=== PATIENT | female | born 1990 | race Caucasian/White ===

== ENCOUNTER 2017-01-19 17:50 | Inpatient (IN) | payer OTHER ==
[2017-01-19] MEDS ORDERED: SODIUM CHLORIDE 0.9% 2,000 ML IV ONE (18:32)
[2017-01-19] MEDS ORDERED: ACETAMINOPHEN TAB 500 MG TAB PO STA (18:33)
--- NOTE | 2017-01-19 18:39 | ED ---
Nausea/Vomiting/Diarrhea HPI - General Chief complaint: Nausea/Vomiting/Diarrhea Stated complaint: sick , pain all over Source: patient, RN notes reviewed Mode of arrival: ambulatory Limitations: no limitations - History of Present Illness Initial comments: This is a pleasant 26-year-old female states she's felt ill since Sunday. Patient states she started with vomiting and now has a bit of diarrhea. Patient states that she has had abdominal discomfort as well as back pain bilaterally. Patient denies cough or shortness of breath. She denies sore throat but states she is having some burning in her throat from the vomiting. She is also complaining of a headache and muscle aching generally throughout her body. She states the headache starts on both sides and radiates into the back of her neck. She denies any neck stiffness. No earache. No significant dizziness or lightheadedness. No vaginal discharge. No dysuria. Patient did not receive an influenza shot. Patient does not believe she is . Patient denies any skin rashes or lesions. No chest pain. No changes in vision or hearing. No paresthesias. - Related Data Home Medications Medication Instructions Recorded Confirmed Acetaminophen Tab [Tylenol Tab] 1,000 mg PO Q6HR PRN 01/19/17 01/19/17 Ibuprofen [Motrin] 800 mg PO Q6HR PRN 01/19/17 01/19/17 Allergies Allergy/AdvReac Type Severity Reaction Status Date / Time No Known Allergies Allergy Verified 01/19/17 18:50 Review of Systems ROS Statement: Those systems with pertinent positive or pertinent negative responses have been documented in the HPI. ROS Other: All systems not noted in ROS Statement are negative. Past Medical History Past Medical History: No Reported History History of Any Multi-Drug Resistant Organisms: None Reported Past Surgical History: No Surgical Hx Reported Additional Past Surgical History / Comment(s): urethral dilation at age 4, wisdom teeth 2013, no additional surgeries reported Past Anesthesia/Blood Transfusion Reactions: No Reported Reaction Past Psychological History: No Psychological Hx Reported Smoking Status: Never smoker Past Alcohol Use History: Occasional Past Drug Use History: None Reported - Past Family History Mother Family Medical History: No Reported History Additional Family Medical History / Comment(s): MS General Exam - General Exam Comments Initial Comments: This is a well-developed, well-nourished 26-year-old female who appears to be in mild distress Limitations: no limitations General appearance: alert, in distress Head exam: Present: atraumatic, normocephalic, normal inspection Eye exam: Present: normal appearance, PERRL, EOMI. Absent: scleral icterus, conjunctival injection, periorbital swelling ENT exam: Present: normal exam, normal oropharynx, mucous membranes dry, mucous membranes moist, TM's normal bilaterally, normal external ear exam Neck exam: Present: normal inspection, full ROM, other (Negative Brudzinski's and Kernig's). Absent: tenderness, meningismus, lymphadenopathy Respiratory exam: Present: normal lung sounds bilaterally. Absent: respiratory distress, wheezes, rales, rhonchi, stridor, decreased breath sounds Cardiovascular Exam: Present: normal rhythm, tachycardia, normal heart sounds, other (Capillary refill less than 2 seconds, peripheral pulses 2+ out of 4.). Absent: systolic murmur, diastolic murmur, rubs, gallop, clicks GI/Abdominal exam: Present: soft, normal bowel sounds. Absent: distended, tenderness, guarding, rebound, rigid Extremities exam: Present: normal inspection, full ROM, normal capillary refill. Absent: tenderness, pedal edema, joint swelling, calf tenderness Back exam: Present: normal inspection, CVA tenderness (R), CVA tenderness (L), other (Mild bilateral CVA tenderness). Absent: rash noted Neurological exam: Present: alert, oriented X3, CN II-XII intact Psychiatric exam: Present: normal affect, normal mood Skin exam: Present: warm, dry, intact, normal color. Absent: rash, cyanosis, diaphoretic, erythema, urticaria, vesicles, petechiae, pallor, mottled, abrasion Course Vital Signs 01/19/17 17:52 Temperature 101.8 F H Pulse Rate 138 H Respiratory 18 Rate Blood Pressure 120/62 O2 Sat by Pulse 100 Oximetry - Reevaluation(s) Reevaluation #1: 01/19/17 20:16 Patient reevaluated and is resting comfortably in bed. Patient states she feels improved. Heart rate has diminished to 96 bpm. Capillary refill less than 2 seconds. Peripheral perfusion is adequate. Patient is in no respiratory distress. Abdomen is soft to palpation, no significant tenderness Medical Decision Making - Medical Decision Making Patient be admitted for urinary tract infection with secondary sepsis. Patient given parenteral antibiotics in the ER in the form of Rocephin 1000 mg IV piggyback. Patient be made a hospice, Dr. Deal. Case discussed with the ER attending physician. Discussed treatment plan and prognosis with the patient. - Lab Data Result diagrams: 01/19/17 19:08 01/19/17 19:08 Lab Results 01/19/17 01/19/17 01/19/17 Range/Units 19:08 19:08 19:08 WBC 18.0 H (3.8-10.6) k/uL RBC 4.08 (3.80-5.40) m/uL Hgb 12.4 (11.4-16.0) gm/dL Hct 38.7 (34.0-46.0) % MCV 95.0 (80.0-100.0) fL MCH 30.4 (25.0-35.0) pg MCHC 32.0 (31.0-37.0) g/dL RDW 13.3 (11.5-15.5) % Plt Count 212 (150-450) k/uL Neutrophils % 90 % Lymphocytes % 3 % Monocytes % 4 % Eosinophils % 0 % Basophils % 0 % Neutrophils # 16.2 H (1.3-7.7) k/uL Lymphocytes # 0.5 L (1.0-4.8) k/uL Monocytes # 0.8 (0-1.0) k/uL Eosinophils # 0.0 (0-0.7) k/uL Basophils # 0.1 (0-0.2) k/uL Sodium (137-145) mmol/L Potassium (3.5-5.1) mmol/L Chloride (98-107) mmol/L Carbon Dioxide (22-30) mmol/L Anion Gap mmol/L BUN (7-17) mg/dL Creatinine (0.52-1.04) mg/dL Est GFR (MDRD) Af Amer (>60 ml/min/1.73 sqM) Est GFR (MDRD) Non-Af (>60 ml/min/1.73 sqM) Glucose (74-99) mg/dL Plasma Lactic Acid Robert (0.7-2.0) mmol/L Calcium (8.4-10.2) mg/dL Total Bilirubin (0.2-1.3) mg/dL AST (14-36) U/L ALT (9-52) U/L Alkaline Phosphatase (38-126) U/L Total Protein (6.3-8.2) g/dL Albumin (3.5-5.0) g/dL Lipase (23-300) U/L Heterophile Antibody (Negative) Influenza Type A RNA Not Detected (Not Detectd) Influenza Type B (PCR) Not Detected (Not Detectd) Group A Strep Rapid Negative (Negative) 01/19/17 01/19/17 01/19/17 Range/Units 19:08 19:08 19:08 WBC (3.8-10.6) k/uL RBC (3.80-5.40) m/uL Hgb (11.4-16.0) gm/dL Hct (34.0-46.0) % MCV (80.0-100.0) fL MCH (25.0-35.0) pg MCHC (31.0-37.0) g/dL RDW (11.5-15.5) % Plt Count (150-450) k/uL Neutrophils % % Lymphocytes % % Monocytes % % Eosinophils % % Basophils % % Neutrophils # (1.3-7.7) k/uL Lymphocytes # (1.0-4.8) k/uL Monocytes # (0-1.0) k/uL Eosinophils # (0-0.7) k/uL Basophils # (0-0.2) k/uL Sodium 135 L (137-145) mmol/L Potassium 3.7 (3.5-5.1) mmol/L Chloride 105 (98-107) mmol/L Carbon Dioxide 18 L (22-30) mmol/L Anion Gap 12 mmol/L BUN 11 (7-17) mg/dL Creatinine 0.80 (0.52-1.04) mg/dL Est GFR (MDRD) Af Amer >60 (>60 ml/min/1.73 sqM) Est GFR (MDRD) Non-Af >60 (>60 ml/min/1.73 sqM) Glucose 107 H (74-99) mg/dL Plasma Lactic Acid Robert 1.7 (0.7-2.0) mmol/L Calcium 8.5 (8.4-10.2) mg/dL Total Bilirubin 1.0 (0.2-1.3) mg/dL AST 25 (14-36) U/L ALT 25 (9-52) U/L Alkaline Phosphatase 118 (38-126) U/L Total Protein 6.4 (6.3-8.2) g/dL Albumin 3.3 L (3.5-5.0) g/dL Lipase 31 (23-300) U/L Heterophile Antibody Negative (Negative) Influenza Type A RNA (Not Detectd) Influenza Type B (PCR) (Not Detectd) Group A Strep Rapid (Negative) Disposition Clinical Impression: Sepsis due to urinary tract infection, Urinary tract infection, SIRS (systemic inflammatory response syndrome), Fever Disposition: ADMITTED IP TO THIS HOSP Referrals: Bernadette Tucker MD [Primary Care Provider] - 1-2 days
[2017-01-19 19:22] LABS: Basophils # (A) 0.1 k/uL (0-0.2); Basophils % (A) 0 %; CH 31.8; CHCM 33.7; Eosinophils % (A) 0 %; HCT 38.7 % (34.0-46.0); HDW 2.53; HGB 12.4 gm/dL (11.4-16.0); Luc # (Auto) 0.43; Luc % (Auto) 2; Lymphocytes # (A) 0.5 k/uL (1.0-4.8); Lymphocytes % (A) 3 %; MCH 30.4 pg (25.0-35.0); Mean Platelet Volume 8.3; Monocytes # (A) 0.8 k/uL (0-1.0); Monocytes % (A) 4 %; Neutrophils # (A) 16.2 k/uL (1.3-7.7); Neutrophils % (A) 90 %; RBC 4.08 m/uL (3.80-5.40); RDW 13.3 % (11.5-15.5); WBC (Perox) 18.32
[2017-01-19 19:29] LABS: ALT 25 U/L (9-52); AST 25 U/L (14-36); Alkaline Phosphatase 118 U/L (38-126); Anion Gap 12 mmol/L; Blood Urea Nitrogen 11 mg/dL (7-17); Calcium 8.5 mg/dL (8.4-10.2); Carbon Dioxide 18 mmol/L (22-30); Chloride 105 mmol/L (98-107); Glucose 107 mg/dL (74-99); Non-African American GFR(MDRD) >60 (>60 ml/min/1.73 sqM); Potassium 3.7 mmol/L (3.5-5.1); Sodium 135 mmol/L (137-145); Total Protein 6.4 g/dL (6.3-8.2)
[2017-01-19 20:22] LABS: Amorphous Sediment,Urine Rare /hpf; Appearance,Urine Cloudy (Clear); Bacteria,Urine Many /hpf; Bilirubin,Urine Negative (Negative); Glucose,Urine (UA) 2+ (Negative); Ketones,Urine Trace (Negative); Leukocyte Esterase,Urine Large (Negative); Mucus,Urine Occasional /hpf; Nitrite,Urine Positive (Negative); PH, Urine 6.5 (5.0-8.0); Particle Count 5759; Protein,Urine 2+ (Negative); RBC,Urine 7 /hpf (0-5); Specific Gravity,Urine 1.012 (1.001-1.035); Squamous Epithelial Cell,Urine <1 /hpf (0-4); UA Billing (MACRO vs. MICRO) MICRO; WBC,Urine 120 /hpf (0-5)
[2017-01-19] MEDS ORDERED: SODIUM CHLORIDE 0.9% 600 ML IV ONE (20:29)
[2017-01-19] MEDS ORDERED: NALOXONE 0.4 MG/ML 1 ML VIAL IV PRN (20:32)
[2017-01-19] MEDS: SODIUM CHLORIDE 0.9% 1,000 ML IV SCH (21:09)
[2017-01-20] MEDS: ACETAMINOPHEN TAB 325 MG TAB PO PRN ×2 (01:23→16:58)
[2017-01-20] MEDS: ONDANSETRON 4 MG/2 ML VIAL IVP PRN ×3 (01:26→23:39)
[2017-01-20] MEDS: IBUPROFEN 400 MG TAB PO PRN ×2 (03:20→14:55)
[2017-01-20 08:19] LABS: Basophils % (A) 0 %; CH 30.4; CHCM 32.9; Eosinophils % (A) 0 %; HCT 32.1 % (34.0-46.0); HDW 2.61; HGB 10.4 gm/dL (11.4-16.0); Luc % (Auto) 2; Lymphocytes # (A) 0.8 k/uL (1.0-4.8); Lymphocytes % (A) 6 %; MCH 30.3 pg (25.0-35.0); MCHC 32.6 g/dL (31.0-37.0); Mean Platelet Volume 7.1; Monocytes # (A) 0.7 k/uL (0-1.0); Monocytes % (A) 5 %; Neutrophils # (A) 12.8 k/uL (1.3-7.7); Neutrophils % (A) 87 %; RBC 3.45 m/uL (3.80-5.40); RDW 12.5 % (11.5-15.5); WBC 14.7 k/uL (3.8-10.6); WBC (Perox) 14.84
[2017-01-20] MEDS: SODIUM CHLORIDE 0.9% 1,000 ML IV SCH ×3 (08:25→22:48)
[2017-01-20 08:33] LABS: AST 14 U/L (14-36); Alkaline Phosphatase 81 U/L (38-126); Anion Gap 10 mmol/L; Blood Urea Nitrogen 7 mg/dL (7-17); Calcium 7.4 mg/dL (8.4-10.2); Carbon Dioxide 18 mmol/L (22-30); Chloride 111 mmol/L (98-107); Glucose 94 mg/dL (74-99); Non-African American GFR(MDRD) >60 (>60 ml/min/1.73 sqM); Sodium 139 mmol/L (137-145); Total Bilirubin 0.7 mg/dL (0.2-1.3)
[2017-01-20 08:34] LABS: ALT 29 U/L (9-52)
[2017-01-20] MEDS: POTASSIUM CHLORIDE ER 20 MEQ TAB.ER PO SCH ×5 (09:51→14:42)
[2017-01-20 11:40] VITALS: BMI 31.9
[2017-01-20] MEDS: POTASSIUM CHLORIDE 10 MEQ, LIDOCAINE 2% INJ 10 MG in SODIUM CHLORIDE 0.9% 100 ML IV SCH ×2 (17:41→18:55)
--- NOTE | 2017-01-20 23:11 | P.HPIM ---
History of Present Illness H&P Date: 01/20/17 Chief Complaint: Nausea and vomiting This is a pleasant 26-year-old female without significant past medical history came to some complaints of nausea and vomiting and abdominal discomfort since last Sunday. Patient states she started with vomiting and now has a bit of diarrhea. Patient states that she has had abdominal discomfort as well as back pain bilaterally. Patient denies cough or shortness of breath. Patient denied any fever but does have chills. She denies sore throat but states she is having some burning in her throat from the vomiting. She is also complaining of a headache and muscle aching generally throughout her body. She states the headache starts on both sides and radiates into the back of her neck. She denies any neck stiffness. No earache. No significant dizziness or lightheadedness. No vaginal discharge. No dysuria. Patient did not receive an influenza shot. Patient does not believe she is . Patient denies any skin rashes or lesions. No chest pain. No changes in vision or hearing. No paresthesias. Review of Systems Constitutional: Patient denies any fever or chills . Generalized weakness. No weight loss. Abdomen: Patient does have nausea vomiting and diarrhea and abdominal pain. Cardiovascular: Patient denies any chest pain or short of breath no palpitations. Respiratory: patient denied any cough is from production. No shortness of breath Neurologic: Patient denied any numbness or tingling headache. Musculoskeletal: Patient denies any complaints of joint swelling or deformity. Skin: Negative Psychiatric: Negative Endocrine: No heat or cold intolerance. No recent weight gain. Genitourinary: No dysuria or hematuria. All other 14 point ROS negative except the above Past Medical History Past Medical History: No Reported History Additional Past Medical History / Comment(s): NO REPORTED MEDICAL HX. History of Any Multi-Drug Resistant Organisms: None Reported Past Surgical History: No Surgical Hx Reported Additional Past Surgical History / Comment(s): urethral dilation at age 4, wisdom teeth 2013, no additional surgeries reported Past Anesthesia/Blood Transfusion Reactions: No Reported Reaction Smoking Status: Former smoker - Past Family History Mother Family Medical History: No Reported History Additional Family Medical History / Comment(s): MS Father Family Medical History: Hypertension Medications and Allergies Home Medications Medication Instructions Recorded Confirmed Type Acetaminophen Tab [Tylenol Tab] 1,000 mg PO Q6HR PRN 01/19/17 01/19/17 History Ibuprofen [Motrin] 800 mg PO Q6HR PRN 01/19/17 01/19/17 History Allergies Allergy/AdvReac Type Severity Reaction Status Date / Time No Known Allergies Allergy Verified 01/19/17 18:50 Physical Exam Vitals: Vital Signs Temp Pulse Pulse Resp BP BP BP 01/20/17 07:00 99.1 F 109 H 20 96/53 01/20/17 06:42 98.4 F 01/20/17 04:00 102.9 F H 01/20/17 01:10 102.8 F H 01/19/17 22:50 98.1 F 110 H 20 112/62 01/19/17 21:10 99.5 F 115 H 16 107/61 01/19/17 20:16 100 F H 127 H 18 104/56 01/19/17 17:52 101.8 F H 138 H 18 120/62 Pulse Ox 01/20/17 07:00 100 01/20/17 06:42 01/20/17 04:00 01/20/17 01:10 01/19/17 22:50 100 01/19/17 21:10 97 01/19/17 20:16 97 01/19/17 17:52 100 Intake and Output 01/19/17 01/20/17 01/20/17 22:59 06:59 14:59 Intake Total 1600 450 480 Balance 1600 450 480 Intake: IV 1000 Invasive Line 1 1000 Oral 600 450 480 Other: Voiding Method Toilet # Voids 1 1 # Bowel Movements 0 Weight 87.09 kg PHYSICAL EXAMINATION: Patient is lying in the bed comfortably, no acute distress, awake alert and oriented.. HEENT: Normocephalic. Neck is supple. Pupils reactive. Nostrils clear. Oral cavity is moist. Ears reveal no drainage. Neck reveals no JVD, carotid bruits, or thyromegaly. CHEST EXAMINATION: Trachea is central. Symmetrical expansion. Lung jorge clear to auscultation and percussion. CARDIAC: Normal S1, S2 with no gallops. No murmurs ABDOMEN: Soft. Bowel sounds normal. No organomegaly. No abdominal bruits. Extremities: reveal no edema. No clubbing or cyanosis Neurologically awake, alert, oriented x3 with well-coordinated movements. No focal deficits noted Skin: No rash or skin lesions. Psychiatric: Operative. Nonsuicidal Musculoskeletal: No joint swelling or deformity. Normal range of motion. Results CBC & Chem 7: 01/20/17 07:48 01/20/17 22:28 Labs: Abnormal Lab Results - Last 24 Hours (Table) 01/19/17 01/19/17 01/19/17 Range/Units 19:08 19:08 19:31 WBC 18.0 H (3.8-10.6) k/uL RBC (3.80-5.40) m/uL Hgb (11.4-16.0) gm/dL Hct (34.0-46.0) % Neutrophils # 16.2 H (1.3-7.7) k/uL Lymphocytes # 0.5 L (1.0-4.8) k/uL Sodium 135 L (137-145) mmol/L Potassium (3.5-5.1) mmol/L Chloride (98-107) mmol/L Carbon Dioxide 18 L (22-30) mmol/L Glucose 107 H (74-99) mg/dL Calcium (8.4-10.2) mg/dL Total Protein (6.3-8.2) g/dL Albumin 3.3 L (3.5-5.0) g/dL Urine Appearance Cloudy H (Clear) Urine Protein 2+ H (Negative) Urine Glucose (UA) 2+ H (Negative) Urine Ketones Trace H (Negative) Urine Blood Small H (Negative) Urine Nitrite Positive H (Negative) Ur Leukocyte Esterase Large H (Negative) Urine RBC 7 H (0-5) /hpf Urine WBC 120 H (0-5) /hpf Amorphous Sediment Rare H (None) /hpf Urine Bacteria Many H (None) /hpf Urine Mucus Occasional H (None) /hpf 01/20/17 01/20/17 Range/Units 07:48 07:48 WBC 14.7 H (3.8-10.6) k/uL RBC 3.45 L (3.80-5.40) m/uL Hgb 10.4 L (11.4-16.0) gm/dL Hct 32.1 L (34.0-46.0) % Neutrophils # 12.8 H (1.3-7.7) k/uL Lymphocytes # 0.8 L (1.0-4.8) k/uL Sodium (137-145) mmol/L Potassium 3.0 L* (3.5-5.1) mmol/L Chloride 111 H (98-107) mmol/L Carbon Dioxide 18 L (22-30) mmol/L Glucose (74-99) mg/dL Calcium 7.4 L (8.4-10.2) mg/dL Total Protein 5.0 L (6.3-8.2) g/dL Albumin 2.4 L (3.5-5.0) g/dL Urine Appearance (Clear) Urine Protein (Negative) Urine Glucose (UA) (Negative) Urine Ketones (Negative) Urine Blood (Negative) Urine Nitrite (Negative) Ur Leukocyte Esterase (Negative) Urine RBC (0-5) /hpf Urine WBC (0-5) /hpf Amorphous Sediment (None) /hpf Urine Bacteria (None) /hpf Urine Mucus (None) /hpf Microbiology - Last 24 Hours (Table) 01/19/17 19:08 Group A Strep Throat Culture - Preliminary Throat Thrombosis Risk Factor Assmnt - Choose All That Apply Any of the Below Risk Factors Present?: Yes Each Factor Represents 1 point: Obesity (BMI >25) Thrombosis Risk Factor Assessment Total Risk Factor Score: 1 Thrombosis Risk Factor Assessment Level: Low Risk Assessment and Plan Assessment: #1 sepsis secondary to UTI and possible pyelonephritis #2 hypovolemic hyponatremia #3 nausea vomiting and abdominal pain #4 hypokalemia Plan: Patient will be continued on antibiotics in the form of ceftriaxone. Continue with IV fluids and follow up urine culture report. Symptomatic management for nausea and vomiting. Replace acclimates Influenza A and B-. Negative. Group A streptococcal. Culture in process. Will continue the current management and further conditions based on the clinical course.
[2017-01-21] MEDS: ACETAMINOPHEN TAB 325 MG TAB PO PRN ×3 (01:35→23:22)
[2017-01-21] MEDS: SODIUM CHLORIDE 0.9% 1,000 ML IV SCH ×3 (06:38→23:25)
[2017-01-21] MEDS: ONDANSETRON 4 MG/2 ML VIAL IVP PRN (07:40)
[2017-01-21 08:03] LABS: Basophils % (A) 0 %; CH 30.4; CHCM 32.3; Eosinophils % (A) 0 %; HCT 32.6 % (34.0-46.0); HDW 2.64; HGB 10.4 gm/dL (11.4-16.0); Luc # (Auto) 0.44; Luc % (Auto) 4; Lymphocytes # (A) 1.2 k/uL (1.0-4.8); Lymphocytes % (A) 9 %; MCH 30.2 pg (25.0-35.0); MCHC 31.9 g/dL (31.0-37.0); MCV 94.6 fL (80.0-100.0); Mean Platelet Volume 7.3; Monocytes # (A) 0.8 k/uL (0-1.0); Monocytes % (A) 7 %; Neutrophils # (A) 10.2 k/uL (1.3-7.7); Neutrophils % (A) 80 %; RBC 3.45 m/uL (3.80-5.40); RDW 12.7 % (11.5-15.5); WBC 12.6 k/uL (3.8-10.6); WBC (Perox) 12.68
[2017-01-21 08:19] LABS: Anion Gap 10 mmol/L; Blood Urea Nitrogen 5 mg/dL (7-17); Calcium 7.7 mg/dL (8.4-10.2); Carbon Dioxide 17 mmol/L (22-30); Chloride 112 mmol/L (98-107); Glucose 92 mg/dL (74-99); Non-African American GFR(MDRD) >60 (>60 ml/min/1.73 sqM); Potassium 3.7 mmol/L (3.5-5.1); Sodium 139 mmol/L (137-145)
[2017-01-22] MEDS: SODIUM CHLORIDE 0.9% 1,000 ML IV SCH (06:11)
[2017-01-22 07:44] VITALS: BP 114/55; PULSE 80; RESP 16; TEMP 99.1
[2017-01-22] MEDS: ACETAMINOPHEN TAB 325 MG TAB PO PRN (08:22)
--- NOTE | 2017-01-22 14:51 | P.DS ---
Providers Date of admission: 01/19/17 20:48 Expected date of discharge: 01/22/17 Attending physician: Cindy Ann Primary care physician: Bernadette Tucker [facility] Course: Final Diagnoses: #1 sepsis secondary to UTI and possible pyelonephritis #2 hypovolemic hyponatremia, resolved #3 nausea vomiting and abdominal pain, resolved #4 hypokalemia, resolved #5 atelectasis Hospital course:This is a pleasant 26-year-old female admitted with sepsis secondary to UTI, possible pyelonephritis , complains of nausea ,vomiting, diarrhea and abdominal as as well as bilateral back discomfort. She denies sore throat but states she is having some burning in her throat from the vomiting. She is also complaining of a headache and muscle aching generally throughout her body. Maintained on IV fluid hydration, IV antibiotics of ceftriaxone, electrolyte supplementation and symptomatic management for nausea and vomiting.Influenza A and B- Negative. Group a streptococcal throat culture negative. Final urine culture negative, UA positive. Blood culture negative at 48 hours. Significant clinical improvement. Patient is being discharged home in a stable condition with guarded prognosis. Microbiology 01/19/17 19:08 Throat Group A Strep Throat Culture - Final 01/19/17 19:08 Blood Blood Culture - Preliminary No Growth after 48 hours 01/20/17 11:00 Urine,Clean Catch Urine Culture - Final The impression and plan of care has been dictated as directed. : I performed a history and examination of this patient, discussed the same with the dictator. I agree with the dictator's note ,documented as a scribe. Any additional findings or plans will be noted. Patient Condition at Discharge: Stable Plan - Discharge Summary Discharge Rx Participant: No New Discharge Prescriptions: New Ciprofloxacin HCl [Cipro] 500 mg PO Q12HR #14 tablet Continue Acetaminophen Tab [Tylenol] 1,000 mg PO Q6HR PRN PRN Reason: Fever And/ Or Pain Changed Ibuprofen [Motrin] 400 mg PO Q6HR PRN #0 PRN Reason: Fever And/ Or Pain Discharge Medication List Acetaminophen Tab [Tylenol] 1,000 mg PO Q6HR PRN 01/19/17 [History] Ciprofloxacin HCl [Cipro] 500 mg PO Q12HR #14 tablet 01/22/17 [Rx] Ibuprofen [Motrin] 400 mg PO Q6HR PRN #0 01/22/17 [Rx] Follow up Appointment(s)/Referral(s): Bernadette Tucker MD [Primary Care Provider] - 3 Days Ambulatory/Diagnostic Orders: Complete Blood Count w/diff [LAB.AMB] Time Frame: 3 Days, Location: Determined By Patient Patient Instructions/Handouts: Urinary Tract Infection in Women (DC) Activity/Diet/Wound Care/Special Instructions: Diet: regular: Yogurt between meals and Q hs X 10 days
== END 2017-01-22 14:49 | disposition home or self-care (01) | DRG 872 ==
LOC: EC 17:50 → 4MS4W 20:48
PROVIDERS: ADMIT Hospitalist; ATTEND Hospitalist
DX: A41.9 Sepsis, unspecified organism (principal); E87.1 Hypo-osmolality and hyponatremia; N12 Tubulo-interstitial nephritis, not specified as acute or chronic; J98.11 Atelectasis; E87.6 Hypokalemia; R19.7 Diarrhea, unspecified; E86.1 Hypovolemia; Z87.891 Personal history of nicotine dependence; Z82.49 Family history of ischemic heart disease and other diseases of the circulatory system
CPT/HCPCS: 36415; 80048; 80053; 81001; 81025; 83605; 83690; 83735; 84132; 85025; 86308; 87040; 87081; 87086; 87430; 87502; 96361; 96365; 99285

== ENCOUNTER → 2017-05-23 | Outpatient (CLI) | payer OTHER ==
--- NOTE | 2017-05-28 11:25 | HM ---
HOLTER MONITOR REPORT Patient was monitored for 24 hours. The baseline rhythm is a sinus mechanism with normal conduction. The average rate 94 beats per minute, minimum 64, maximum 166 beats per minute. Ventricular ectopic activity was present in the form of rare single PAC. Supraventricular ectopic activity was present in the from of rare single PACs. Episodes of sinus tachycardia were noted. No diary was available. CONCLUSION: 1. Sinus mechanism baseline rhythm. 2. Rare ventricular ectopic activity. 3. Rare supraventricular ectopic activity. 4. No diary was available. MMODL / IJN: [id number] /
== END | disposition home or self-care (01) ==
LOC: RADECHMAIN 12:13
PROVIDERS: ATTEND Internal Medicine
DX: I49.3 Ventricular premature depolarization (principal)
CPT/HCPCS: 93225; 93226

== ENCOUNTER → 2017-05-29 | Outpatient (CLI) | payer OTHER ==
[2017-05-29 17:56] LABS: Blood Urea Nitrogen 14 mg/dL (7-17)
--- NOTE | 2017-05-29 21:18 | MR ---
EXAMINATION TYPE: MR brain wo/w con DATE OF EXAM: 05/29/2017 COMPARISON: NONE HISTORY: Headaches CONTRAST: Performed utilizing 7.5 mL intravenous Gadavist gadolinium contrast. TECHNIQUE: Multiplanar, multiecho imaging on a 3.0 Kait magnet is performed through the brain. Stud y is performed within 24 hours of arrival to the hospital. The craniovertebral junction is normal. The pituitary is normal. Diffusion-weighted imaging is performed. No abnormal hyperintensity is present to suggest an acute i ntracranial infarct or acute ischemic change. Signal through the brain is normal. Ventricles and sulci are appropriate for the patient age. IMPRESSIONS: 1. Normal pre and postcontrast MRI brain.
== END | disposition home or self-care (01) ==
LOC: RADMRIMAIN 17:18
PROVIDERS: ATTEND Psychiatry & Neurology Neurology
DX: D49.6 Neoplasm of unspecified behavior of brain (principal); R51 Headache
CPT/HCPCS: 82565; 84520; 70553; 36415; A9581

== ENCOUNTER 2018-07-25 17:11 | Emergency (ER) | payer OTHER ==
[2018-07-25 17:19] VITALS: BP 127/83; RESP 18; TEMP 98.2
[2018-07-25] MEDS ORDERED: IBUPROFEN 600 MG TAB PO STA (17:29)
[2018-07-25] MEDS ORDERED: predniSONE 20 MG TAB PO STA (17:29)
--- NOTE | 2018-07-25 17:54 | ED ---
General Adult HPI - General Chief complaint: Back Pain/Injury Stated complaint: Back pain Time Seen by Provider: 07/25/18 17:22 Source: patient, RN notes reviewed, old records reviewed Mode of arrival: ambulatory Limitations: no limitations - History of Present Illness Initial comments: 27 old female past medical history of chronic lumbar back pain presents ED with approximately 6 weeks with waning mild exacerbation of left paralumbar back pain. Patient reports that she has had waxing and waning tightness, pain in her left paralumbar region. Patient denies any recent falls or trauma. Patient denies any recent side, however does report that she does hold her son regularly which causes strain on her back. Patient denies any loss of bowel or bladder control, saddle anesthesia, lower extremity weakness. Patient is ambulatory without difficulty. Patient denies any IV drug use or fevers or chills. Patient denies all other complaints. Pt states that she is not . Systemic: Pt denies fatigue, myalgia, fever/chills, rash. Pt denies weakness, night sweats, weight loss. Neuro: Pt denies headache, visual disturbances, syncope or pre-syncope. HEENT: Pt denies ocular discharge or irritation, otalgia, rhinorrhea, pharyngitis or notable lymphadenopathy. Cardiopulmonary: Pt denies chest pain, SOB, heart palpitations, dyspnea on exertion. Abdominal/GI: Pt denies abdominal pain, n/v/d. : Pt denies dysuria, burning w/ urination, frequency/urgency. Denies new onset urinary or bowel incontinence. MSK: Pt denies myalgia, loss of strength or function in extremities. Neuro: Pt denies new onset weakness, paresthesias. - Related Data Home Medications Medication Instructions Recorded Confirmed Acetaminophen Tab [Tylenol] 1,000 mg PO Q6HR PRN 01/19/17 01/19/17 Previous Rx's Medication Instructions Recorded Ciprofloxacin HCl [Cipro] 500 mg PO Q12HR #14 tablet 01/22/17 Ibuprofen [Motrin] 400 mg PO Q6HR PRN #0 01/22/17 Ibuprofen [Motrin] 600 mg PO Q6HR PRN #40 day 07/25/18 predniSONE 20 mg PO Q12HR 4 Days #8 tab 07/25/18 Allergies Allergy/AdvReac Type Severity Reaction Status Date / Time No Known Allergies Allergy Verified 07/25/18 17:20 Review of Systems ROS Statement: Those systems with pertinent positive or pertinent negative responses have been documented in the HPI. ROS Other: All systems not noted in ROS Statement are negative. Past Medical History Past Medical History: No Reported History Additional Past Medical History / Comment(s): NO REPORTED MEDICAL HX. History of Any Multi-Drug Resistant Organisms: None Reported Past Surgical History: No Surgical Hx Reported Additional Past Surgical History / Comment(s): urethral dilation at age 4, wisdom teeth 2013, no additional surgeries reported Past Anesthesia/Blood Transfusion Reactions: No Reported Reaction Past Psychological History: No Psychological Hx Reported Smoking Status: Current every day smoker Past Alcohol Use History: None Reported Past Drug Use History: None Reported - Past Family History Mother Family Medical History: No Reported History Additional Family Medical History / Comment(s): MS Father Family Medical History: Hypertension General Exam - General Exam Comments Initial Comments: Constitutional: NAD, AOX3, Pt has pleasant affect. HEENT: NC/AT, trachea midline, neck supple, no lymphadenopathy. Posterior pharynx non erythematous, without exudates. External ears appear normal, without discharge. Mucous membranes moist. Eyes PERRLA, EOM intact. There is no scleral icterus. No pallor noted. Cardiopulmonary: RRR, no murmurs, rubs or gallops, no JVD noted. Lungs CTAB in anterior and posterior jorge. No peripheral edema. Abdominal exam: Abdomen soft and non-distended. Abdomen non-tender to palpation in all 4 quadrants. Bowel sounds active in LLQ. No hepatosplenomegaly. No ecchymosis Neuro: CN II-XII grossly intact. No nuchal rigidity. MSK: 5 strength quadriceps and psoas muscles. 2 out of 4 patellar and ankles reflex. The toe walking intact. No midline cervical thoracic lumbar tenderness. Mild amount of left paralumbar tenderness. Straight leg raise negative. No posterior calf tenderness bilaterally, homans sign negative bilaterally. Posterior tibialis and radial pulse +2 bilaterally. Sensation intact in upper and lower extremities. Full active ROM in upper and lower extremities, 5/5 stregnth. Limitations: no limitations Course Vital Signs 07/25/18 17:16 Temperature 98.2 F Pulse Rate 83 Respiratory 18 Rate Blood Pressure 127/83 O2 Sat by Pulse 100 Oximetry Medical Decision Making - Medical Decision Making 27 old female past medical history of chronic lumbar back pain presents ED with approximately 6 weeks with waning mild exacerbation of left paralumbar back pain. Patient reports that she has had waxing and waning tightness, pain in her left paralumbar region. Patient denies any recent falls or trauma. Patient denies any recent side, however does report that she does hold her son regularly which causes strain on her back. Patient denies any loss of bowel or bladder control, saddle anesthesia, lower extremity weakness. Patient is ambulatory without difficulty. Patient denies any IV drug use or fevers or chills. Patient denies all other complaints. Pt states that she is not . Pt VSS, afebrile. Physical exam displayed: 5 strength quadriceps and psoas muscles. 2 out of 4 patellar and ankles reflex. The toe walking intact. No midline cervical thoracic lumbar tenderness. Mild amount of left paralumbar tenderness. Straight leg raise negative. Straight shared decision making, patient, for with symptomatic treatment, no imaging. Patient administered ibuprofen and prednisone ED. Patient be discharged with anti-inflammatories, 4 days of steroids. Patient to follow up with primary care provider as well as orthopedic consult 1-2 days. Patient return to ER if condition worsens in any way. Case discussed with Dr. Daily. Disposition Clinical Impression: Strain of lumbar region Disposition: HOME SELF-CARE Condition: Stable Instructions (If sedation given, give patient instructions): Acute Low Back Pain (ED), Chronic Back Pain (ED) Additional Instructions: Patient to adhere to previously discussed treatment plan and will take medication(s) as directed. Patient to follow up with PCP in 1-2 days. Patient to return to ED if symptoms do not improve. Please follow up with PCP in 1-2 days, please follow up with orthopedic consult in 1-2 days. Take medications as directed, use anti inflammatories as needed for pain. Prescriptions: Ibuprofen [Motrin] 600 mg PO Q6HR PRN #40 day PRN Reason: Pain predniSONE 20 mg PO Q12HR 4 Days #8 tab Is patient prescribed a controlled substance at d/c from ED?: No Referrals: Bernadette Tucker MD [Primary Care Provider] - 1-2 days Jason Lemus DO [Doctor of Osteopathic Medicine] - 1-2 days
[2018-07-25 17:59] VITALS: PULSE 66
== END 2018-07-25 17:57 | disposition home or self-care (01) ==
LOC: EC 17:11
DX: S39.012A Strain of muscle, fascia and tendon of lower back, initial encounter (principal); F17.200 Nicotine dependence, unspecified, uncomplicated
CPT/HCPCS: 99283; J7512

== ENCOUNTER → 2018-08-28 | Outpatient (CLI) | payer OTHER ==
--- NOTE | 2018-08-28 18:12 | XR ---
EXAMINATION TYPE: XR lumbosacral spine min 4V DATE OF EXAM: 08/28/2018 CLINICAL HISTORY: Back pain TECHNIQUE: Frontal, lateral, and oblique images of the lumbar spine are obtained. COMPARISON: None FINDINGS: There are 5 lumbar type vertebral bodies identified. The lumbar spine shows satisfactory alignment without evidence of acute fracture or dislocation. Vertebral body heights and disk space he ights are within normal limits. The oblique images appear within normal limits. Mild facet arthrop athy is seen at L4-5 and L5-S1. The overlying soft tissue appears unremarkable. IMPRESSION: No acute fracture or malalignment is seen in the lumbar spine.
== END | disposition home or self-care (01) ==
LOC: RADXRMAIN 16:44
PROVIDERS: ATTEND Nurse Practitioner Family
DX: M54.5 Low back pain (principal)
CPT/HCPCS: 72110

== ENCOUNTER 2019-12-17 06:15 | Inpatient (IN) | payer OTHER ==
[2019-12-17] MEDS ORDERED: OXYTOCIN 10 UNIT/ML 1 ML VIAL IM PRN (06:29)
[2019-12-17] MEDS ORDERED: METHYLERGONOVINE 0.2 MG/ML 1 ML AMP IM PRN (06:29)
[2019-12-17] MEDS ORDERED: LIDOCAINE 0.5% (PF) 5 MG/ML (50 ML SDV) SQ PRN (06:29)
[2019-12-17] MEDS ORDERED: TERBUTALINE 1 MG/ML VIAL SQ PRN (06:29)
[2019-12-17] MEDS ORDERED: CARBOPROST TROMETHAMINE 250 MCG/ML 1 ML AMP IM PRN (06:29)
[2019-12-17] MEDS: LACTATED RINGERS 1,000 ML IV SCH ×2 (06:42→09:59)
[2019-12-17] MEDS: OXYTOCIN 30 UNITS/500 ML NS 30 UNIT in SALINE 1 500ML.BAG IV SCH (06:42)
[2019-12-17 06:48] LABS: Basophils % (A) 0 %; Eosinophils # (A) 0.2 k/uL (0-0.7); Eosinophils % (A) 2 %; HCT 39.9 % (34.0-46.0); HGB 12.9 gm/dL (11.4-16.0); Lymphocytes # (A) 2.3 k/uL (1.0-4.8); Lymphocytes % (A) 20 %; MCH 30.6 pg (25.0-35.0); MCHC 32.2 g/dL (31.0-37.0); MCV 94.8 fL (80.0-100.0); Mean Platelet Volume 8.3; Monocytes # (A) 0.5 k/uL (0-1.0); Monocytes % (A) 5 %; Neutrophils # (A) 8.3 k/uL (1.3-7.7); Neutrophils % (A) 72 %; Platelet Count 174 k/uL (150-450); RBC 4.21 m/uL (3.80-5.40); RDW 13.7 % (11.5-15.5); WBC 11.5 k/uL (3.8-10.6)
--- NOTE | 2019-12-17 07:34 | P.HPOB ---
History of Present Illness H&P Date: 12/17/19 Chief Complaint: Here for induction of labor with favorable multiparous cervix This is a 29-year-old white female 2 per 1001 EDC 12/19/2019 at 39-5/7 weeks' gestation. Patient presents for induction with favorable multiparous cervix. is remarkable for circumvallate placenta, NSTs weekly have been reactive. Good growth noted sonographically. She denies fluid leakage or vaginal bleeding at this time. Past medical history is essentially negative. Past surgical history urethral dilation 1994. Current medications vitamins daily. ALLERGIES none known. Family history is essentially unremarkable. Social history patient is single, father of the baby is involved. She is a former tobacco smoker but quit during . She denies alcohol or drug use. history blood type is A+, rubella status nonimmune. VDRL testing, urine culture, hepatitis B surface antigen, HIV testing, GC and chlamydia cultures, group B strep cultures all negative. One-hour Glucola 82. Sonogram consistent with circumvallate placenta, anatomic survey otherwise within normal limits. On exam patient is 5 foot 6 inches, 204 pounds, blood pressure 138/85 on admission, pulse 95. The general physical exam is within normal limits. The cervix is 3-4 cm dilated, 80% effaced, -2 station, vertex presentation, anterior and soft. Artificial amniorrhexis reveals clear fluid. heart rate is consistent with reactive NST. Impression: 39-5/7 weeks intrauterine , here for induction of labor, all signs reassuring. Circumvallate placenta noted. Plan: Oxytocin per hospital protocol. Close maternal and surveillance. We will send placenta to pathology after delivery. Anticipate normal spontaneous vaginal delivery, analgesic options reviewed. Review of Systems Constitutional: Reports as per HPI Past Medical History Past Medical History: No Reported History Additional Past Medical History / Comment(s): NO REPORTED MEDICAL HX. History of Any Multi-Drug Resistant Organisms: None Reported Past Surgical History: No Surgical Hx Reported Additional Past Surgical History / Comment(s): urethral dilation at age 4, wisdom teeth 2013, no additional surgeries reported Past Anesthesia/Blood Transfusion Reactions: No Reported Reaction Past Psychological History: No Psychological Hx Reported Additional Psychological History / Comment(s): PT IS INDEPENDANT. NO MEDICAL EQUIPMENT. NO HOME CARE SERVICES RECIEVED. LIVES WITH HER PARENTS, BOYFRIEND AND 2 KIDS. Smoking Status: Former smoker Past Alcohol Use History: None Reported Additional Past Alcohol Use History / Comment(s): SMOKED FROM 2012 TO 2013 1/2 PPD Past Drug Use History: None Reported - Past Family History Mother Family Medical History: Hypertension Additional Family Medical History / Comment(s): MS Father Family Medical History: Hypertension Medications and Allergies Home Medications Medication Instructions Recorded Confirmed Type No Known Home Medications 12/17/19 12/17/19 History Allergies Allergy/AdvReac Type Severity Reaction Status Date / Time No Known Allergies Allergy Verified 12/17/19 06:29 Exam Vital Signs Temp Pulse Resp BP Pulse Ox 12/17/19 06:28 97.1 F L 95 16 138/85 98 Intake and Output 12/16/19 12/17/19 12/17/19 22:59 06:59 14:59 Other: Weight 92.533 kg See dictation under HPI please Results Result Diagrams: 12/17/19 06:30 Abnormal Lab Results - Last 24 Hours (Table) 12/17/19 Range/Units 06:30 WBC 11.5 H (3.8-10.6) k/uL Neutrophils # 8.3 H (1.3-7.7) k/uL Assessment and Plan Assessment: 39-5/7 weeks intrauterine , here for induction of labor. All signs reassuring. Plan: Close maternal and surveillance. Oxytocin per hospital protocol. Anticipate normal spontaneous vaginal delivery. Time with Patient: Less than 30
[2019-12-17] MEDS ORDERED: BUTORPHANOL 1 MG/ML 1 ML VIAL IV PRN (12:34)
--- NOTE | 2019-12-17 14:02 | XR ---
EXAMINATION TYPE: XR abdomen 1V DATE OF EXAM: 12/17/2019 1:49 PM CLINICAL HISTORY: Open surgery today rule out retained foreign body or sponge. TECHNIQUE: Two AP portable frontal supine KUB images of the abdomen are obtained. COMPARISON: Lumbar spine x-ray June 28, 2018. FINDINGS: Scattered gas is seen in non-distended small bowel loops. Gas and fecal material is seen in non-distended colon. There is left-sided percutaneous drainage catheter. No suspicious radiodense fo reign body or sponge clearly seen. Mildly distended bladder fills the upper to mid pelvis centrally. Visualized osseous structures are intact. Overlying blanket material is present. IMPRESSION: As above
[2019-12-17] MEDS ORDERED: ONDANSETRON 4 MG/2 ML VIAL IVP PRN (14:20)
[2019-12-17] MEDS ORDERED: diphenhydrAMINE 50 MG/ML 1 ML VIAL IVP PRN ×2 (14:20)
[2019-12-17] MEDS ORDERED: ZOLPIDEM 5 MG TAB PO PRN (14:20)
[2019-12-17] MEDS ORDERED: NALOXONE 0.4 MG/ML 1 ML VIAL IV PRN ×2 (14:20→14:33)
[2019-12-17] MEDS ORDERED: diphenhydrAMINE 50 MG CAP PO PRN (14:20)
[2019-12-17] MEDS ORDERED: KETOROLAC 15 MG/ML 1 ML VIAL IVP PRN (14:20)
[2019-12-17] MEDS ORDERED: METOCLOPRAMIDE 5 MG/ML 2 ML VIAL IVP PRN (14:20)
[2019-12-17] MEDS ORDERED: diphenhydrAMINE 25 MG CAP PO PRN (14:20)
--- NOTE | 2019-12-17 14:20 | P.PROBDLV ---
Vaginal Delivery Note - . Vaginal Delivery Note: This is a 29-year-old female 2 para 1001 [facility] 12/19/2019 39-5/7 weeks' gestation. Patient presented for induction for term , favorable cervix. is remarkable for late care, and circumvallate placenta. Ultrasounds have been done routinely, good estimated weight and good growth. Weekly nonstress testing has all been reactive. Artificial amniorrhexis revealed clear fluid. Oxytocin was started and titrated per hospital protocol. Patient requested and received an epidural. She became completely dilated at 1222 hrs. and began the second stage of labor at that time. She swiftly deliver a liveborn male infant with scores of 7 and 9 at one and 5 minutes respectively. Infant's head delivered spontaneously, no nuchal cord noted. The left or anterior shoulder was delivered easily at which time the oropharynx, nasopharynx, and external nares were all bulb suction. Patient officially delivered a liveborn male at 1234 hours. Umbilical cord was doubly clamped and ligated, he was handed to waiting nurses for evaluation where scores of 7 and 9 at one and 5 minutes respectively were given. Infant weighed 8 lbs. 6 oz. Uterus is then massaged. Gentle traction of the cord was performed. The placenta delivered spontaneously. The central portion was noted to be within normal limits. However when the placenta was fully in the introitus, the edges of the circumvallate placenta did not detach. I took my index finger and removed the placenta circumferentially, it was inspected and noted to be fully intact. However, the uterus was now inverted and in the introitus. The diagnosis of uterine inversion was rapidly made and communicated to the staff. The patient's head was placed down and she was instructed to attempt to fully relax. Oxytocin was discontinued. I took my fist and with strong direct pressure to the uterine fundus pushed vigorously in an attempt to reinvert. Reinversion was not successful. A second attempt was made, again unsuccessful. Bleeding at this time became brisk. A second aluminizer was called and the operating room was opened. Anesthesia was notified. Patient was brought immediatelyl to the operating room where general anesthetic was administered. Now in the dorsal lithotomy position, my partner was present and attempted to re-invert the uterus. Again the attempt was unsuccessful. Bleeding continued, patient was typed and crossed and a unit of blood was called for. At this time the decision was made to proceed with laparotomy. Caceres catheter was placed. Abdomen was prepped and draped in the usual sterile fashion. 2 g of Ancef were given. Dr. Cornell was called away for another delivery and Dr. Foreman assisted. A low transverse skin incision was made and this was carried down through the subcutaneous tissue to the fascia. Fascia was isolated, scored, extended bilaterally. Peritoneum was opened. Upon inspecting the uterus it was noted to be almost cup-shaped, the outer serosal edges appeared normal with tubes and ovaries but the inner central aspect was inverted. With manual digital traction at the edges pulling upward, and uterine massage at the lower uterine fundus, the uterus was reinverted. At this time oxytocin was restarted. Methergine was injected into the myometrium directly to aid in uterine tone. The uterus was continuously massaged. Stat hemoglobin in the operating room was 8.5, the first unit of red blood cells was therefore hung. Hemabate was given. At this time I was convinced that the uterus was firm, stable, and ready for closure. Prior to closing, I inserted my hand into the vagina and palpated the uterus, and was able to feel the cervix circumferentially. Bleeding was now minimal. Gloves were changed, fresh sleeve was placed on the gown. Peritoneum was allowed to close by secondary intention. Fascia was closed in a running stitch of 0 Vicryl with over ligation in the midline. Subcutaneous tissue was inspected, clean and dry. It was reapproximated with 3-0 Vicryl in a running fashion. 4-0 undyed Monocryl is used for final skin closure in a subcuticular manner. Steri-Strips and Mastisol were applied to the wound. Uterus is once again massaged, bleeding was minimal. All sponge needle and instrument counts were correct. However due to the stat nature of the procedure an abdominal x- ray was performed per hospital protocol and this was negative for sponges, needles, instruments or any foreign bodies. Total estimated blood loss 1000 mL's. Urine output 300 mL and the Caceres catheter was clear. Fluid replacement in the operating room 1500 mL of crystalloid, 500 mL of albumin, and 1 unit of packed red blood cells. Patient is brought back to the recovery room in good condition with a pulse of 120, blood pressure 90/50. Care is taken now to disc uss and explain the procedure and indications to the family in detail. Full understanding was expressed by patient's partner and mother. All questions answered.
[2019-12-17] MEDS: HYDROmorphone PCA 10 MG/50 ML BAG IV PRN ×2 (15:04→21:46)
[2019-12-17 16:20] LABS: Basophils % (A) 0 %; Eosinophils % (A) 0 %; HCT 34.3 % (34.0-46.0); HGB 11.3 gm/dL (11.4-16.0); Lymphocytes # (A) 1.1 k/uL (1.0-4.8); Lymphocytes % (A) 5 %; MCH 30.6 pg (25.0-35.0); MCHC 33.1 g/dL (31.0-37.0); MCV 92.4 fL (80.0-100.0); Mean Platelet Volume 8.4; Monocytes # (A) 0.8 k/uL (0-1.0); Monocytes % (A) 4 %; Neutrophils # (A) 18.7 k/uL (1.3-7.7); Neutrophils % (A) 90 %; Platelet Count 143 k/uL (150-450); RBC 3.71 m/uL (3.80-5.40); RDW 14.7 % (11.5-15.5); WBC 20.8 k/uL (3.8-10.6)
[2019-12-17] MEDS: SENNOSIDES-DOCUSATE SODIUM 1 EACH TAB PO SCH (21:27)
[2019-12-18] MEDS: LACTATED RINGERS 1,000 ML IV SCH ×4 (04:01→21:46)
--- NOTE | 2019-12-18 07:25 | P.ANPRN ---
Procedure Note - Anesthesia - Nerve Block Performed Left Transversus Abdominis Single Time Out Performed: Yes Date of Procedure: 12/17/19 Procedure Start Time: :45 Procedure Stop Time: :53 Location of Patient: PreOp Indication: Acute Post-Operative Pain, Requested by Surgeon Sedation Type: Sedate with meaningful contact maintained Preparation: Sterile Prep Position: Supine Needle Types: Pajunk Needle Gauge: 21 Ultrasound used to visualize needle placement: Yes Ultrasound used to observe medication spread: Yes Blood Aspirated: No Pain Paresthesia on Injection Noted: No Resistance on Injection: Normal Image Stored and Saved: Yes Events: Uneventful and Well Tolerated (ropi .5% 30cc plus dexamethasone 4mg)
--- NOTE | 2019-12-18 07:36 | P.PN ---
Subjective Progress Note Date: 12/18/19 Principal diagnosis: day #1 Feeling well, normal lochia rubra. Requesting food. No complaints. Objective - Vital Signs Vital signs: Vital Signs Temp 97.8 F 12/17/19 23:56 Pulse 93 12/17/19 23:58 Resp 16 12/17/19 23:58 BP 120/81 12/17/19 23:56 Pulse Ox 98 12/17/19 23:56 Intake & Output 12/17/19 12/18/19 12/18/19 18:59 06:59 18:59 Intake Total 310 Output Total 3333 400 Balance -3023 -400 Intake: Blood Product 310 Rc As-1 Unit 310 [id number] Output: Urine 400 400 Uretheral (Caceres) 200 Estimated Blood Loss 2933 Other: # Voids 300 - Constitutional General appearance: Present: average body habitus, cooperative - EENT Eyes: Present: PERRLA - Respiratory Respiratory: bilateral: CTA - Cardiovascular Rhythm: regular - Gastrointestinal General gastrointestinal: Present: normal bowel sounds - Integumentary Integumentary Comment(s): Incision clean and dry, intact. Steri-Strips applied to the well approximated incision. Fundus firm, midline, symmetric, 18 week size, nontender. Integumentary: Present: normal - Neurologic Neurologic: Present: CNII-XII intact - Musculoskeletal Musculoskeletal: Present: gait normal, strength equal bilaterally - Psychiatric Psychiatric: Present: A&O x's 3, appropriate affect, intact judgment & insight - Labs CBC & Chem 7: 12/17/19 15:58 Labs: Abnormal Lab Results - Last 24 Hours (Table) 12/17/19 12/17/19 Range/Units 06:30 15:58 WBC 20.8 H (3.8-10.6) k/uL RBC 3.71 L (3.80-5.40) m/uL Hgb 11.3 L (11.4-16.0) gm/dL Plt Count 143 L (150-450) k/uL Neutrophils # 18.7 H (1.3-7.7) k/uL Crossmatch See Detail Assessment and Plan Assessment: Doing well day #1 Plan: Continue care. Likely discharge home tomorrow. Advanced diet and activity. Time with Patient: Less than 30
[2019-12-18 08:13] LABS: Basophils % (A) 0 %; Eosinophils % (A) 0 %; HCT 26.2 % (34.0-46.0); Lymphocytes % (A) 12 %; MCH 30.1 pg (25.0-35.0); MCHC 32.2 g/dL (31.0-37.0); MCV 93.5 fL (80.0-100.0); Mean Platelet Volume 8.7; Monocytes # (A) 0.7 k/uL (0-1.0); Monocytes % (A) 4 %; Neutrophils # (A) 14.4 k/uL (1.3-7.7); Neutrophils % (A) 83 %; Platelet Count 148 k/uL (150-450); RBC 2.81 m/uL (3.80-5.40); RDW 15.4 % (11.5-15.5); WBC 17.3 k/uL (3.8-10.6)
[2019-12-18 08:21] LABS: HGB 8.5 gm/dL (11.4-16.0)
[2019-12-18] MEDS: IBUPROFEN 600 MG TAB PO PRN ×3 (08:22→22:08)
[2019-12-18] MEDS: SENNOSIDES-DOCUSATE SODIUM 1 EACH TAB PO SCH ×2 (08:22→22:08)
[2019-12-18] MEDS: ACETAMINOPHEN TAB 325 MG TAB PO PRN ×2 (12:11→17:52)
[2019-12-18] MEDS: SIMETHICONE 80 MG CHEWABLE PO SCH (18:15)
[2019-12-18] MEDS: OXYTOCIN 30 UNITS/500 ML NS 30 UNIT in SALINE 1 500ML.BAG IV SCH (21:47)
[2019-12-19] MEDS: SIMETHICONE 80 MG CHEWABLE PO SCH ×3 (00:19→13:00)
--- NOTE | 2019-12-19 04:43 | P.DS ---
Providers Date of admission: 12/17/19 06:16 Expected date of discharge: 12/19/19 Attending physician: Katrin Morse Primary care physician: Stated None Hospital Course: This is a 29-year-old white female 2 para 1001 [facility] 12/19/2019 at 39-5/7 weeks' gestation. Patient presented for induction with favorable multiparous cervix. was remarkable for a known circumvallate placenta discovered sonographically at 19 weeks. This was followed through the with growth ultrasounds every trimester, and weekly nonstress testing beginning at 32 weeks, all of which were reactive. Blood type is A+, rubella status nonimmune, group B strep cultures negative. Please see admitting history and physical for details. Patient requested an epidural and progressed well through labor. She delivered a liveborn male infant with scores of 7 and 9 at one and 5 minutes respectively. weighed 8 lbs. 6 oz. or 3790 g. Upon delivery of the placenta, it was noted to be firmly attached to the endometrial cavity. It was able to be , however a uterine inversion occurred. This was managed in the operating room under general anesthesia, as it was not able to be reduced at the bedside. Please see dictation for details. Total estimated blood loss was recorded at 1000 mL, and therefore one unit of packed red blood cells was given. The patient did well intraoperatively. Postoperatively the patient has continued to do well. She is voiding, and bleeding, passing flatus without difficulty. Vital signs are stable and she has remained afebrile. Bleeding this morning is minimal, incision is clean and dry, subcuticular stitch and Steri-Strips applied. She has no complaints, is judged to be in very good condition for discharge home. She will follow-up with me in the office in 2 weeks for incision check. She will use [id number] Advil or Aleve, or Motrin as needed for pain. I've asked her to call with any fevers shakes or chills, foul smelling or copious lochia, with the passage of large blood clots, with any pain not alleviated by [id number] products or indeed with any concerns. We have briefly contemplated options for contraception and we will discuss this further in the office. Assessment: Post day #2, doing well Patient Condition at Discharge: Good Plan - Discharge Summary Discharge Rx Participant: No New Discharge Prescriptions: No Action No Known Home Medications Discharge Medication List No Known Home Medications 12/17/19 [History] Follow up Appointment(s)/Referral(s): Katrin Morse MD [STAFF PHYSICIAN] - 2 Weeks Discharge Disposition: HOME SELF-CARE
[2019-12-19] MEDS: IBUPROFEN 600 MG TAB PO PRN ×2 (05:49→13:40)
[2019-12-19 09:52] VITALS: RESP 18
[2019-12-19] MEDS: SENNOSIDES-DOCUSATE SODIUM 1 EACH TAB PO SCH (09:54)
[2019-12-19 16:10] VITALS: BP 130/75; PULSE 111; TEMP 98.7
--- NOTE | 2019-12-23 11:49 | P.ANPRN ---
Procedure Note - Anesthesia - Nerve Block Performed Left Transversus Abdominis Single Time Out Performed: Yes Date of Procedure: 12/17/19 Procedure Start Time: :45 Procedure Stop Time: :53 Location of Patient: PreOp Indication: Acute Post-Operative Pain, Requested by Surgeon Sedation Type: Sedate with meaningful contact maintained Preparation: Sterile Prep, Sterile Dressing Position: Supine Needle Types: Pajunk Needle Gauge: 21 Ultrasound used to visualize needle placement: Yes Ultrasound used to observe medication spread: Yes Blood Aspirated: No Pain Paresthesia on Injection Noted: No Resistance on Injection: Normal Image Stored and Saved: Yes Events: Uneventful and Well Tolerated (ropi .5% 30 cc plus dexamethasone 4mg)
== END 2019-12-19 17:00 | disposition home or self-care (01) | DRG 768 ==
LOC: 4FBP 06:16
PROVIDERS: ADMIT Obstetrics & Gynecology; ATTEND Obstetrics & Gynecology
PROC: 30233N1 Transfusion of Nonautologous Red Blood Cells into Peripheral Vein, Percutaneous Approach (ICD-10-PCS; 2019-12-17)
PROC: 10E0XZZ Delivery of Products of Conception, External Approach (ICD-10-PCS; principal; 2019-12-17 13:00)
PROC: 3E033VJ Introduction of Other Hormone into Peripheral Vein, Percutaneous Approach (ICD-10-PCS; principal; 2019-12-17 13:00)
PROC: 0US90ZZ Reposition Uterus, Open Approach (ICD-10-PCS; principal; 2019-12-17 13:00)
PROC: 10907ZC Drainage of Amniotic Fluid, Therapeutic from Products of Conception, Via Natural or Artificial Opening (ICD-10-PCS; principal; 2019-12-17 13:00)
DX: O43.113 Circumvallate placenta, third trimester (principal); Z37.0 Single live birth; O72.1 Other immediate postpartum hemorrhage; O34.593 Maternal care for other abnormalities of gravid uterus, third trimester; N85.5 Inversion of uterus; Z3A.39 39 weeks gestation of pregnancy; Z87.891 Personal history of nicotine dependence; Z82.49 Family history of ischemic heart disease and other diseases of the circulatory system
CPT/HCPCS: 74018; 85025; 86850; 86900; 86901; 86920; 88307

== ENCOUNTER 2021-11-05 20:26 | Emergency (ER) | payer OTHER ==
[2021-11-05 21:03] VITALS: RESP 16
--- NOTE | 2021-11-05 21:33 | ED ---
General Adult HPI - General Chief complaint: ENT Stated complaint: Sore Throat Time Seen by Provider: 11/05/21 21:11 Source: patient Mode of arrival: ambulatory Limitations: no limitations - History of Present Illness Initial comments: Dictation was produced using [employer] dictation software. please excuse any grammatical, word or spelling errors. Chief Complaint: 31-year-old female with past medical history poor dentition presents to the ER for sore throat and dental pain History of Present Illness:-year-old female she has no significant past medical history. Patient has history poor dentition. She states that for the last 4 days she's been having sore throat and dental pain. Patient initially presented to the urgent care however the wait time was too long so she decided come to the ER. Patient has IUD and denies . Patient has any fever, chills or night sweats. No trouble breathing or swallowing. The ROS documented in this emergency department record has been reviewed and confirmed by me. Those systems with pertinent positive or negative responses have been documented in the HPI. All other systems are other negative and/or noncontributory. PHYSICAL EXAM: General Impression: Alert and oriented x3, not in acute distress HEENT: Normocephalic atraumatic, extra-ocular movements intact, pupils equal and reactive to light bilaterally, mucous membranes moist. Oral exam: Multiple rotted teeth, no gingival abscesses, slight erythema to the bilateral tonsils. Left appears to be slightly more swollen than the right. No peritonsillar fullness Cardiovascular: Heart regular rate and rhythm Chest: Able to complete full sentences, no retractions, no tachypnea Abdomen: abdomen soft, non-tender, non-distended, no organomegaly Musculoskeletal: Pulses present and equal in all extremities, no peripheral edema Motor: no focal deficits noted Neurological: CN II-XII grossly intact, no focal motor or sensory deficits noted Skin: Intact with no visualized rashes Psych: Normal affect and mood ED course: 31-year-old Female presents emergency department for dental pain, and throat pain. Vital signs upon arrival are within acceptable limits. Strep test negative. 4 panel viral PCR is negative for coronal virus, influenza and RSV.. Patient be discharged. Patient prescription for antibiotics. Advised follow up with dentist. - Related Data Previous Rx's Medication Instructions Recorded Amoxic-Pot Clav 875-125Mg 1 tab PO BID 10 Days #20 tab 11/05/21 [Augmentin 875-125] Allergies Allergy/AdvReac Type Severity Reaction Status Date / Time No Known Allergies Allergy Verified 11/05/21 21:03 Review of Systems ROS Statement: Those systems with pertinent positive or pertinent negative responses have been documented in the HPI. ROS Other: All systems not noted in ROS Statement are negative. Past Medical History Past Medical History: No Reported History Additional Past Medical History / Comment(s): NO REPORTED MEDICAL HX. History of Any Multi-Drug Resistant Organisms: None Reported Past Surgical History: No Surgical Hx Reported Additional Past Surgical History / Comment(s): urethral dilation at age 4, wisdom teeth 2013, no additional surgeries reported Past Anesthesia/Blood Transfusion Reactions: No Reported Reaction Past Psychological History: No Psychological Hx Reported Smoking Status: Former smoker Past Alcohol Use History: None Reported Past Drug Use History: None Reported - Past Family History Mother Family Medical History: Hypertension Additional Family Medical History / Comment(s): MS Father Family Medical History: Hypertension General Exam Limitations: no limitations Course Vital Signs 11/05/21 20:59 Temperature 98.1 F Pulse Rate 92 Respiratory 16 Rate Blood Pressure 124/84 O2 Sat by Pulse 100 Oximetry Medical Decision Making - Lab Data Lab Results 11/05/21 11/05/21 Range/Units 20:05 21:59 Influenza Type A (PCR) Not Detected (Not Detectd) Influenza Type B (PCR) Not Detected (Not Detectd) RSV (PCR) Not Detected (Not Detectd) SARS-CoV-2 (PCR) Not Detected (Not Detectd) Group A Strep Rapid Negative (Negative) Disposition Clinical Impression: Pain, dental Disposition: HOME SELF-CARE Condition: Good Prescriptions: Amoxic-Pot Clav 875-125Mg [Augmentin 875-125] 1 tab PO BID 10 Days #20 tab Is patient prescribed a controlled substance at d/c from ED?: No Referrals: Sanaz Gay [facility] [REFERRING] - 1-2 days Time of Disposition: 21:35
[2021-11-05 23:34] VITALS: BP 126/88; PULSE 82; TEMP 97.9
== END 2021-11-05 23:34 | disposition home or self-care (01) ==
LOC: EC 20:26
DX: K08.89 Other specified disorders of teeth and supporting structures (principal); Z87.891 Personal history of nicotine dependence; Z20.822 Contact with and (suspected) exposure to COVID-19
CPT/HCPCS: 87081; 87430; 87636; 99283

== ENCOUNTER 2022-12-08 18:32 | Emergency (ER) | payer OTHER ==
[2022-12-08 18:53] VITALS: PULSE 116; RESP 20; TEMP 97
[2022-12-08] MEDS ORDERED: LORazepam 2 MG/ML INJ IM STA (19:27)
--- NOTE | 2022-12-08 19:29 | ED ---
General Adult HPI - General Chief complaint: Recheck/Abnormal Lab/Rx Stated complaint: Withdrawls Time Seen by Provider: 12/08/22 19:01 Source: patient Mode of arrival: ambulatory Limitations: no limitations - History of Present Illness Initial comments: A 32-year-old female with past medical history significant for opioid abuse presents to ED with a chief complaint of opioid withdrawal. Patient states that her physician is unable to refill her Suboxone until 4 days in the future and patient states that she has not had her Suboxone for 1 day. Due to this, now reports feeling myalgias and anxiety. Denies suicidal or homicidal ideation. Denies chest pain shortness of breath. No other complaints. - Related Data Previous Rx's Medication Instructions Recorded Amoxic-Pot Clav 875-125Mg 1 tab PO BID 10 Days #20 tab 11/05/21 [Augmentin 875-125] Allergies Allergy/AdvReac Type Severity Reaction Status Date / Time No Known Allergies Allergy Verified 12/08/22 18:53 Review of Systems ROS Statement: Those systems with pertinent positive or pertinent negative responses have been documented in the HPI. ROS Other: All systems not noted in ROS Statement are negative. Past Medical History Past Medical History: No Reported History Additional Past Medical History / Comment(s): NO REPORTED MEDICAL HX. History of Any Multi-Drug Resistant Organisms: None Reported Past Surgical History: No Surgical Hx Reported Additional Past Surgical History / Comment(s): urethral dilation at age 4, wisdom teeth 2013, no additional surgeries reported Past Anesthesia/Blood Transfusion Reactions: No Reported Reaction Past Psychological History: No Psychological Hx Reported Smoking Status: Current every day smoker Past Alcohol Use History: None Reported Past Drug Use History: Prescription Drug Abuse - Past Family History Mother Family Medical History: Hypertension Additional Family Medical History / Comment(s): MS Father Family Medical History: Hypertension General Exam Limitations: no limitations General appearance: alert, in no apparent distress Eye exam: Present: PERRL, EOMI Neck exam: Present: normal inspection Respiratory exam: Present: normal lung sounds bilaterally Cardiovascular Exam: Present: regular rate, normal rhythm GI/Abdominal exam: Present: soft Neurological exam: Present: alert, oriented X3 Skin exam: Present: warm, dry Course Vital Signs 12/08/22 12/08/22 18:50 19:53 Temperature 97.0 F L Pulse Rate 116 H Respiratory 20 Rate Blood Pressure 157/97 131/88 O2 Sat by Pulse 100 Oximetry Medical Decision Making - Medical Decision Making Was pt. sent in by a medical professional or institution (ELIANA Serrano, CLERGY MEMBER, urgent care, hospital, or intermediate...) When possible be specific @ -No Did you speak to anyone other than the patient for history (EMS, parent, family, police, friend...)? What history was obtained from this source @ -No Did you review nursing and triage notes (agree or disagree)? Why? @ -I reviewed and agree with nursing and triage notes Were old charts reviewed (outside hosp., previous admission, EMS record, old EKG, old radiological studies, urgent care reports/EKG's, intermediate records)? Report findings @ -No old charts were reviewed Differential Diagnosis (chest pain, altered mental status, abdominal pain women, abdominal pain men, vaginal bleeding, weakness, fever, dyspnea, syncope, headache, dizziness, GI bleed, back pain, seizure, CVA, palpatations, mental health, musculoskeletal)? @ -not applicable EKG interpreted by me (3pts min.). @ -As above X-rays interpreted by me (1pt min.). @ -None done CT interpreted by me (1pt min.). @ -None done U/S interpreted by me (1pt. min.). @ -None done What testing was considered but not performed or refused? (CT, X-rays, U/S, labs)? Why? @ -None What meds were considered but not given or refused? Why? @ -None Did you discuss the management of the patient with other professionals (professionals i.e. ELIANA Serrano, CLERGY MEMBER, lab, RT, psych nurse, social sciences professor, pill maker, teacher, staff combat information center officer, medical case worker)? Give summary @ -No Was smoking cessation discussed for >3mins.? @ -No Was critical care preformed (if so, how long)? @ -No Were there social determinants of health that impacted care today? How? (Homelessness, low income, unemployed, alcoholism, drug addiction, transportation, low edu. Level, literacy, decrease access to med. care, snf, rehab)? @ -No Was there de-escalation of care discussed even if they declined (Discuss DNR or withdrawal of care, Hospice)? DNR status @ -No What co-morbidities impacted this encounter? (DM, HTN, Smoking, COPD, CAD, Cancer, CVA, ARF, Chemo, Hep., AIDS, mental health diagnosis, sleep apnea, m orbid obesity)? @ -Opioid abuse Was patient admitted / discharged? Hospital course, mention meds given and route, prescriptions, significant lab abnormalities, going to OR and other pertinent info. @ -Discharge 82-year-old female presenting to the ED with a chief complaint of opiod withdrawal with complaints of myalgias and anxiety.. Patient has not had Suboxone in one day. She had significant improvement of symptoms with 1 mg Ativan and clonidine patch. Advised to continue wearing patch until Suboxone refilled. Discharged home in stable condition. Advised follow-up with PCP as needed. Undiagnosed new problem with uncertain prognosis? @ -No Drug Therapy requiring intensive monitoring for toxicity (Heparin, Nitro, Insulin, Cardizem)? @ -No Were any procedures done? @ -No Diagnosis/symptom? @ -Opioid withdrawal Acute, or Chronic, or Acute on Chronic? @ -Acute Uncomplicated (without systemic symptoms) or Complicated (systemic symptoms)? @ -Uncomplicated Side effects of treatment? @ -No Exacerbation, Progression, or Severe Exacerbation? @ -No Poses a threat to life or bodily function? How? (Chest pain, [place], [place], pneumonia, PE, COPD, DKA, ARF, appy, cholecystitis, CVA, Diverticulitis, Homicidal, Suici vidal, threat to staff... and all critical care pts) @ -No Disposition Clinical Impression: Opioid withdrawal Disposition: HOME SELF-CARE Condition: Good Instructions (If sedation given, give patient instructions): Opioid Withdrawal (ED) Additional Instructions: Please return to the Emergency Department if symptoms worsen or any other concerns. Is patient prescribed a controlled substance at d/c from ED?: No Referrals: Lv Fraga MD [Primary Care Provider] - 1-2 days Time of Disposition: 20:23
[2022-12-08] MEDS ORDERED: cloNIDine 0.2 MG/24HR PATCH TRANSDERM SCH (19:45)
[2022-12-08 20:02] VITALS: BP 131/88
== END 2022-12-08 20:29 | disposition home or self-care (01) ==
LOC: EC 18:32
DX: F11.23 Opioid dependence with withdrawal (principal); F17.200 Nicotine dependence, unspecified, uncomplicated; F15.90 Other stimulant use, unspecified, uncomplicated
CPT/HCPCS: 99283; 96372; J2060

== ENCOUNTER 2023-06-13 16:58 | Emergency (ER) | payer OTHER ==
[2023-06-13 17:24] VITALS: TEMP 98.1
[2023-06-13 17:59] LABS: Basophils % (A) 0 %; Eosinophils % (A) 1 %; HCT 40.2 % (34.0-46.0); HGB 13.5 gm/dL (11.4-16.0); Lymphocytes # (A) 2.1 k/uL (1.0-4.8); Lymphocytes % (A) 30 %; MCH 31.3 pg (25.0-35.0); MCHC 33.5 g/dL (31.0-37.0); MCV 93.3 fL (80.0-100.0); Mean Platelet Volume 7.5; Monocytes # (A) 0.3 k/uL (0-1.0); Monocytes % (A) 5 %; Neutrophils # (A) 4.5 k/uL (1.3-7.7); Neutrophils % (A) 63 %; Platelet Count 184 k/uL (150-450); RBC 4.31 m/uL (3.80-5.40); RDW 12.9 % (11.5-15.5); WBC 7.1 k/uL (3.8-10.6)
--- NOTE | 2023-06-13 18:01 | XR ---
EXAMINATION TYPE: XR chest 2V DATE OF EXAM: 06/13/2023 5:51 PM CLINICAL INDICATION:Female, 32 years old with history of Chest Pain; [facility] COMPARISON: None TECHNIQUE: XR chest 2V Frontal and lateral views of the chest. FINDINGS: Lungs/Pleura: There is no evidence of pleural effusion, focal consolidation, or pneumothorax. Pulmonary vascularity: Unremarkable. Heart/mediastinum: Cardiomediastinal silhouette is unremarkable. Musculoskeletal: No acute osseous pathology. IMPRESSION: No acute cardiopulmonary disease/process.
[2023-06-13 18:07] LABS: ALT 20 U/L (4-34); AST 31 U/L (14-36); African American GFR (CKD) >90 (>60 ml/min/1.73 sqM); Albumin 3.8 g/dL (3.5-5.0); Alkaline Phosphatase 60 U/L (38-126); Anion Gap 4 mmol/L; Blood Urea Nitrogen 9 mg/dL (7-17); Calcium 9.1 mg/dL (8.4-10.2); Carbon Dioxide 24 mmol/L (22-30); Chloride 111 mmol/L (98-107); Glucose 98 mg/dL (74-99); Non-African American GFR(CKD) >90 (>60 ml/min/1.73 sqM); Potassium 3.7 mmol/L (3.5-5.1); Sodium 139 mmol/L (137-145); Total Bilirubin 0.6 mg/dL (0.2-1.3); Total Protein 6.4 g/dL (6.3-8.2)
[2023-06-13] MEDS: KETOROLAC 15 MG/ML 1 ML VIAL IVP STA (18:07)
[2023-06-13] MEDS: ASPIRIN 81 MG PO STA (18:07)
[2023-06-13 18:10] LABS: INR 0.9 (<1.2); Partial Thromboplastin Time 24.5 sec (22.0-30.0); Prothrombin Time 10.3 sec (10.0-12.5)
[2023-06-13 18:16] LABS: NT-Pro-B-Type Natriuretic Pept 42 pg/mL
--- NOTE | 2023-06-13 18:35 | ED ---
General Adult HPI - General Source: patient, RN notes reviewed, old records reviewed Mode of arrival: ambulatory Limitations: no limitations <Arnie Escobar - Last Filed: 06/13/23 18:27> <Jarvis Mireles - Last Filed: 06/13/23 21:31> - General Chief complaint: Chest Pain Stated complaint: Headache Time Seen by Provider: 06/13/23 17:19 - History of Present Illness Initial comments: Is a 32-year-old female presents emergency department complaining of chest pain. Has no cardiac history. States the pain is currently not present. Has had it intermittently today. Has also been dealing with left shoulder pain as well as back pain. 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 States the pain in her left shoulder and bottom back has been present for multiple days and is worse with movement and lifting. Developed some left-sided chest pain close to her left shoulder today. Was worse with lifting as well. Denies shortness of breath. Denies abdominal pain, nausea, vomiting. No other acute complaints at this time. Presents for further evaluation.Does endorse a mild headache as well. Is a typical headache for her. Not the worst headache of her life. Presents for further evaluation at this time. (Arnie Escobar) - Related Data Previous Rx's Medication Instructions Recorded Amoxic-Pot Clav 875-125Mg 1 tab PO BID 10 Days #20 tab 11/05/21 [Augmentin 875-125] Allergies Allergy/AdvReac Type Severity Reaction Status Date / Time No Known Allergies Allergy Verified 12/08/22 18:53 Review of Systems ROS Other: All systems not noted in ROS Statement are negative. <Arnie Escobar - Last Filed: 06/13/23 18:27> ROS Other: All systems not noted in ROS Statement are negative. <Jarvis Mireles - Last Filed: 06/13/23 21:31> ROS Statement: Those systems with pertinent positive or pertinent negative responses have been documented in the HPI. Review of Systems: CONST: Denies fever EYES: Denies blurry vision ENT: Denies nasal congestion C/V: Denies Chest pain RESP: Denies shortness of breath GI: Denies abdominal pain : Denies dysuria SKIN: Denies rash. MSK: Endorses left shoulder pain NEURO: Endorses headache (Arnie Escobar) Past Medical History Past Medical History: No Reported History Additional Past Medical History / Comment(s): NO REPORTED MEDICAL HX. History of Any Multi-Drug Resistant Organisms: None Reported Past Surgical History: No Surgical Hx Reported Additional Past Surgical History / Comment(s): urethral dilation at age 4, wisdom teeth 2013, no additional surgeries reported Past Anesthesia/Blood Transfusion Reactions: No Reported Reaction Past Psychological History: No Psychological Hx Reported Smoking Status: Current every day smoker Past Alcohol Use History: None Reported Past Drug Use History: Prescription Drug Abuse - Past Family History Mother Family Medical History: Hypertension Additional Family Medical History / Comment(s): MS Father Family Medical History: Hypertension <Arnie Escobar - Last Filed: 06/13/23 18:27> General Exam Limitations: no limitations <Arnie Escobar - Last Filed: 06/13/23 18:27> - General Exam Comments Initial Comments: General: Appears in no acute distress. HEAD: Normal with no signs of head trauma. EYES: PERRLA, EOMI, conjunctiva normal, no discharge. ENT: Hearing grossly intact, normal oropharynx. RESPIRATORY: Clear breath sounds bilaterally. No wheezes, rales, or rhonchi. C/V: Regular rate and rhythm. S1 and S2 auscultated, no edema, peripheral pulses 2+ and intact throughout ABD: Abd is soft, nontender, nondistended EXT: Normal range of motion, no obvious deformity. Left shoulder pain and left arm pain reproducible with movement and on palpation. Currently has no chest pain. SKIN: No rashes or lesions observed on exposed skin. NEURO: Alert and oriented x 4. (Arnie Escobar) Course Vital Signs 06/13/23 06/13/23 06/13/23 16:59 18:38 19:18 Temperature 98.1 F Pulse Rate 100 71 71 Respiratory 20 18 16 Rate Blood Pressure 165/107 143/84 138/88 O2 Sat by Pulse 98 100 99 Oximetry Medical Decision Making - Lab Data Result diagrams: 06/13/23 17:40 06/13/23 17:40 - EKG Data -: EKG Interpreted by Me <Arnie Escobar - Last Filed: 06/13/23 18:27> - Lab Data Result diagrams: 06/13/23 17:40 06/13/23 17:40 <Jarvis Mireles - Last Filed: 06/13/23 21:31> - Medical Decision Making Was pt. sent in by a medical professional or institution (, PA, TUMBLE TAILSTOCK TURRET LATHE OPERATOR, urgent care, hospital, or senior living...) When possible be specific @ -No Did you speak to anyone other than the patient for history (EMS, parent, family, police, friend...)? What history was obtained from this source @ -No Did you review nursing and triage notes (agree or disagree)? Why? @ -I reviewed and agree with nursing and triage notes Were old charts reviewed (outside hosp., previous admission, EMS record, old EKG, old radiological studies, urgent care reports/EKG's, senior living records)? Report findings @ -Old charts reviewed Differential Diagnosis (chest pain, altered mental status, abdominal pain women, abdominal pain men, vaginal bleeding, weakness, fever, dyspnea, syncope, headache, dizziness, GI bleed, back pain, seizure, CVA, palpatations, mental health, musculoskeletal)? @ -Differential Chest Pain: Stable Angina, Unstable Angina, STEMI, NSTEMI Aortic Dissection, Pneumothorax, Musculoskeletal, Esophageal Spasm GERD, Cholecystitis, Pancreatitis, Zoster, this is not meant to be an all-inclusive list. EKG interpreted by me (3pts min.). @ -As above X-rays interpreted by me (1pt min.). @ -Chest x-ray reveals no obvious acute cardiopulmonary process. CT interpreted by me (1pt min.). @ -None done U/S interpreted by me (1pt. min.). @ -None done What testing was considered but not performed or refused? (CT, X-rays, U/S, labs)? Why? @ -None What meds were considered but not given or refused? Why? @ -None Did you discuss the management of the patient with other professionals (jesse soliz i.e. , ELIANA, TUMBLE TAILSTOCK TURRET LATHE OPERATOR, lab, RT, psych nurse, social work lecturer, residential tech, teacher, admitting officer, field nurse case manager)? Give summary @ -No Was smoking cessation discussed for >3mins.? @ -No Was critical care preformed (if so, how long)? @ -No Were there social determinants of health that impacted care today? How? (Homelessness, low income, unemployed, alcoholism, drug addiction, transportation, low edu. Level, literacy, decrease access to med. care, intermediate, rehab)? @ -No Was there de-escalation of care discussed even if they declined (Discuss DNR or withdrawal of care, Hospice)? DNR status @ -No What co-morbidities impacted this encounter? (DM, HTN, Smoking, COPD, CAD, Cancer, CVA, ARF, Chemo, Hep., AIDS, mental health diagnosis, sleep apnea, morbid obesity)? @ -None Was patient admitted / discharged? Hospital course, mention meds given and route, prescriptions, significant lab abnormalities, going to OR and other pertinent info. @ -Based on the patient's presentation and physical exam, presents emergency department complaining of chest pain. This is since resolved. He has been dealing with multiple days of the left shoulder and arm pain as well as back pain. Does lift heavy boxes for living. No cardiac history. Vital signs within acceptable limits. We will obtain cardiopulmonary workup. She will be given aspirin and Toradol. Patient was in agreement this plan. EKG shows no signs of acute ischemia. Chest x-ray unremarkable. Labs remarkable for an undetectable troponin, BNP within normal limits, D-dimer within normal limits. At this time, patient remains asymptomatic in terms of chest pain. I did discuss with her her results. I did recommend a second troponin which she was in agreement with. We did discuss admission as well however we both agree that is not necessary at this time. Patient will wait for second 3-hour troponin. Patient will be given morphine for her arm pain at this time as well as 1 L fluid bolus. At this time, patient is still pending second troponin. Signed out to Dr. Mireles pending results of labs. Undiagnosed new problem with uncertain prognosis? @ -No Drug Therapy requiring intensive monitoring for toxicity (Heparin, Nitro, Ins ulin, Cardizem)? @ -No Were any procedures done? @ -No Diagnosis/symptom? @ -Atypical chest pain, muscle strains Acute, or Chronic, or Acute on Chronic? @ -Acute Uncomplicated (without systemic symptoms) or Complicated (systemic symptoms)? @ -uncomplicated Side effects of treatment? @ -No Exacerbation, Progression, or Severe Exacerbation? @ -No Poses a threat to life or bodily function? How? (Chest pain, [place], [place], pneumonia, PE, COPD, DKA, ARF, appy, cholecystitis, CVA, Diverticulitis, Homicidal, Suicidal, threat to staff... and all critical care pts) @ -Unlikely (Arnie Escobar) Patient care signed out to me pending second troponin. Second troponin is nega tive. Patient reevaluated bedside at 9:30 PM found to be in stable condition. Labs and imagings reviewed and unremarkable. Likely source of symptoms is chest strain. Patient has no high risk features (Jarvis Mireles) - Lab Data Lab Results 06/13/23 06/13/23 06/13/23 Range/Units 17:40 17:40 17:40 WBC 7.1 (3.8-10.6) k/uL RBC 4.31 (3.80-5.40) m/uL Hgb 13.5 (11.4-16.0) gm/dL Hct 40.2 (34.0-46.0) % MCV 93.3 (80.0-100.0) fL MCH 31.3 (25.0-35.0) pg MCHC 33.5 (31.0-37.0) g/dL RDW 12.9 (11.5-15.5) % Plt Count 184 (150-450) k/uL MPV 7.5 Neutrophils % 63 % Lymphocytes % 30 % Monocytes % 5 % Eosinophils % 1 % Basophils % 0 % Neutrophils # 4.5 (1.3-7.7) k/uL Lymphocytes # 2.1 (1.0-4.8) k/uL Monocytes # 0.3 (0-1.0) k/uL Eosinophils # 0.0 (0-0.7) k/uL Basophils # 0.0 (0-0.2) k/uL PT 10.3 (10.0-12.5) sec INR 0.9 (<1.2) APTT 24.5 (22.0-30.0) sec D-Dimer 0.34 (<0.60) mg/L FEU Sodium 139 (137-145) mmol/L Potassium 3.7 (3.5-5.1) mmol/L Chloride 111 H (98-107) mmol/L Carbon Dioxide 24 (22-30) mmol/L Anion Gap 4 mmol/L BUN 9 (7-17) mg/dL Creatinine 0.70 (0.52-1.04) mg/dL Est GFR (CKD-EPI)AfAm >90 (>60 ml/min/1.73 sqM) Est GFR (CKD-EPI)NonAf >90 (>60 ml/min/1.73 sqM) Glucose 98 (74-99) mg/dL Calcium 9.1 (8.4-10.2) mg/dL Magnesium 2.0 (1.6-2.3) mg/dL Total Bilirubin 0.6 (0.2-1.3) mg/dL AST 31 (14-36) U/L ALT 20 (4-34) U/L Alkaline Phosphatase 60 (38-126) U/L Troponin I (0.000-0.034) ng/mL NT-Pro-B Natriuret Pep 42 pg/mL Total Protein 6.4 (6.3-8.2) g/dL Albumin 3.8 (3.5-5.0) g/dL 06/13/23 06/13/23 Range/Units 17:40 20:51 WBC (3.8-10.6) k/uL RBC (3.80-5.40) m/uL Hgb (11.4-16.0) gm/dL Hct (34.0-46.0) % MCV (80.0-100.0) fL MCH (25.0-35.0) pg MCHC (31.0-37.0) g/dL RDW (11.5-15.5) % Plt Count (150-450) k/uL MPV Neutrophils % % Lymphocytes % % Monocytes % % Eosinophils % % Basophils % % Neutrophils # (1.3-7.7) k/uL Lymphocytes # (1.0-4.8) k/uL Monocytes # (0-1.0) k/uL Eosinophils # (0-0.7) k/uL Basophils # (0-0.2) k/uL PT (10.0-12.5) sec INR (<1.2) APTT (22.0-30.0) sec D-Dimer (<0.60) mg/L FEU Sodium (137-145) mmol/L Potassium (3.5-5.1) mmol/L Chloride (98-107) mmol/L Carbon Dioxide (22-30) mmol/L Anion Gap mmol/L BUN (7-17) mg/dL Creatinine (0.52-1.04) mg/dL Est GFR (CKD-EPI)AfAm (>60 ml/min/1.73 sqM) Est GFR (CKD-EPI)NonAf (>60 ml/min/1.73 sqM) Glucose (74-99) mg/dL Calcium (8.4-10.2) mg/dL Magnesium (1.6-2.3) mg/dL Total Bilirubin (0.2-1.3) mg/dL AST (14-36) U/L ALT (4-34) U/L Alkaline Phosphatase (38-126) U/L Troponin I <0.012 <0.012 (0.000-0.034) ng/mL NT-Pro-B Natriuret Pep pg/mL Total Protein (6.3-8.2) g/dL Albumin (3.5-5.0) g/dL - EKG Data EKG Comments: 12-lead Electrocardiogram Interpretation Note EKG was reviewed and interpreted by myself. 12-lead ECG performed at 1706 is interpreted by me as revealing normal sinus rhythm at a rate of 92 beats per minute. [place] is normal. [place] interval is 147 ms, QRS duration is 85 ms, QTc is 401 ms.. There were no ST or T wave abnormalities to suggest myocardial ischemia or injury. Isolated T wave inversion in lead III. R wave progression across the precordium was satisfactory. By my interpretation this EKG is non-diagnostic for acute ischemia. (Arnie Escobar) Disposition <Arnie Escobar - Last Filed: 06/13/23 18:27> Is patient prescribed a controlled substance at d/c from ED?: No Time of Disposition: 21:28 <Jarvis Mireles - Last Filed: 06/13/23 21:31> Clinical Impression: Chest pain, Muscle strain Disposition: HOME SELF-CARE Referrals: Sanaz Gay [facility] [REFERRING] - 1-2 days
[2023-06-13] MEDS: MORPHINE SULFATE 4 MG/ML SYRINGE IVP STA (18:58)
[2023-06-13] MEDS: SODIUM CHLORIDE 0.9% 1,000 ML IV STA (18:59)
[2023-06-13 19:27] VITALS: PULSE 71; RESP 16
[2023-06-13 22:04] VITALS: BP 126/78
== END 2023-06-13 21:36 | disposition home or self-care (01) ==
LOC: EC 16:58
DX: S29.011A Strain of muscle and tendon of front wall of thorax, initial encounter (principal); F17.200 Nicotine dependence, unspecified, uncomplicated; X50.0XXA Overexertion from strenuous movement or load, initial encounter
CPT/HCPCS: 36415; 93005; 85379; 83880; 80053; 83735; 84484; 85025; 85610; 85730; 71046; 99284; 96374; 96375; 96361; J2270; J1885